=== PATIENT | male | born 1980 | race Caucasian/White ===

== ENCOUNTER 2016-08-24 21:56 | Emergency (ER) | payer BC ==
[~2016-08-24] VITALS: Ht 180.3 cm; Wt 81.6 kg
[2016-08-24] MEDS ORDERED: ADDERAL20 MG ORAL (22:30)
[2016-08-24 22:37] VITALS: BP 134/93
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
[2016-08-24] MEDS ORDERED: IBUPROFEN600 MG ORAL (22:57)
[2016-08-24 23:03] VITALS: BP 134/93
--- NOTE | 2016-08-29 14:01 | Diagnostic Imaging Report ---
Indication: Pain Findings: 3 views of the left shoulder were obtained. Alignment of the left shoulder is normal. No acute fracture is identified. Soft tissues are unremarkable. Impression: Negative left shoulder examination
== END 2016-08-24 23:04 | disposition home or self-care (01) ==
LOC: EMR 22:37
DX: S46.912A Strain of unspecified muscle, fascia and tendon at shoulder and upper arm level, left arm, initial encounter (principal); Y04.0XXA Assault by unarmed brawl or fight, initial encounter; Y92.9 Unspecified place or not applicable
CPT/HCPCS: 99283

== ENCOUNTER 2016-11-30 19:37 | Emergency (ER) | payer BC ==
[~2016-11-30] VITALS: Ht 182.9 cm; Wt 81.6 kg
[~2016-11-30 19:37] MED LIST: ADDERAL20 MG ORAL; IBUPROFEN600 MG ORAL
[2016-11-30] MEDS ORDERED: Tetracaine 0.5% Opth Soln LEFT EYE ONE (20:00)
[2016-11-30] MEDS ORDERED: Fluorescein Strips LEFT EYE ONE (20:00)
[2016-11-30 20:02] VITALS: BP 111/76
[2016-11-30] MEDS ORDERED: GENTAMICIN SUL3.5 GM OP (20:26)
[2016-11-30] MEDS ORDERED: IBUPROFEN600 MG ORAL (20:26)
[2016-11-30 20:32] VITALS: BP 121/84
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
== END 2016-11-30 20:32 | disposition home or self-care (01) ==
LOC: EMR 20:19
DX: S05.02XA Injury of conjunctiva and corneal abrasion without foreign body, left eye, initial encounter (principal); X58.XXXA Exposure to other specified factors, initial encounter
CPT/HCPCS: 99284